=== PATIENT | female | born 1990 | race African-American/Black ===

== ENCOUNTER 2018-06-01 12:24 | Emergency (ER) | payer MEDICAID, OTHER ==
[~2018-06-01] VITALS: Ht 157.5 cm; Wt 78.0 kg
[2018-06-01] MEDS ORDERED: ACETAMINOPHEN 500MG TABLET PO ONE (16:15)
[2018-06-01] MEDS ORDERED: CYCLOBENZAPRINE 10MG TABLET PO ONE (16:15)
[2018-06-01 17:35] LABS: CLARITY URINE CLEAR (CLEAR); COLOR URINE YELLOW (YELLOW); KETONES URINE TRACE (NEGATIVE); LEUKOCYTE ESTERASE URINE 2+ (NEGATIVE); NITRITE URINE NEGATIVE (NEGATIVE); OCCULT BLOOD URINE NEGATIVE (NEGATIVE); PROTEIN URINE NEGATIVE (NEGATIVE); SPECIFIC GRAVITY URINE 1.027 (1.005-1.030)
[2018-06-01 18:05] VITALS: BP 118/49
== END 2018-06-01 18:07 | disposition home or self-care (01) ==
LOC: ER 13:44
DX: G89.29 Other chronic pain (principal); M54.5 Low back pain; R82.71 Bacteriuria
CPT/HCPCS: 72070; 72100; 81025; 99284

== ENCOUNTER 2018-07-27 09:55 | Emergency (ER) | payer MEDICAID ==
[~2018-07-27] VITALS: Ht 152.4 cm; Wt 70.0 kg
[2018-07-27 12:03] VITALS: BP 128/77
== END 2018-07-27 12:05 | disposition home or self-care (01) ==
LOC: ER 09:55
DX: L25.9 Unspecified contact dermatitis, unspecified cause (principal); J06.9 Acute upper respiratory infection, unspecified; F17.200 Nicotine dependence, unspecified, uncomplicated
CPT/HCPCS: 99283

== ENCOUNTER 2018-08-16 09:38 | Emergency (ER) | payer MEDICAID ==
[~2018-08-16] VITALS: Ht 154.9 cm; Wt 73.0 kg
[2018-08-16 11:40] VITALS: BP 128/70
== END 2018-08-16 11:41 | disposition home or self-care (01) ==
LOC: ER 09:38
DX: R05 Cough (principal)
CPT/HCPCS: 71045; 99283

== ENCOUNTER 2019-10-29 16:09 | Emergency (ER) | payer MEDICAID ==
[~2019-10-29] VITALS: Ht 154.9 cm; Wt 73.0 kg
[2019-10-29 17:00] LABS: CLARITY URINE CLOUDY (CLEAR); COLOR URINE YELLOW (YELLOW); KETONES URINE NEGATIVE (NEGATIVE); LEUKOCYTE ESTERASE URINE 1+ (NEGATIVE); NITRITE URINE NEGATIVE (NEGATIVE); OCCULT BLOOD URINE NEGATIVE (NEGATIVE); PH URINE 6.5 (4.5-8.0); PROTEIN URINE NEGATIVE (NEGATIVE); SPECIFIC GRAVITY URINE 1.021 (1.005-1.030)
[2019-10-29] MEDS ORDERED: AZITHROMYCIN 500 MG TABLET PO STA (18:21)
[2019-10-29] MEDS ORDERED: CEFTRIAXONE SODIUM 250 MG/VIAL IM STA (18:21)
[2019-10-29] MEDS ORDERED: ONDANSETRON 4MG ODT PO ONE (18:30)
[2019-10-29] MEDS ORDERED: LIDOCAINE HCL 1% 20ML VIAL (Pyxis) INJ INFIL ONE (18:45)
[2019-10-29 18:48] VITALS: BP 128/69
[2019-11-01 04:08] LABS: NEISSERIA GONORRHOEAE NAA Negative (Negative)
== END 2019-10-29 19:00 | disposition home or self-care (01) ==
LOC: ER 16:09
DX: O23.591 Infection of other part of genital tract in pregnancy, first trimester (principal); O23.41 Unspecified infection of urinary tract in pregnancy, first trimester; B96.89 Other specified bacterial agents as the cause of diseases classified elsewhere; Z3A.00 Weeks of gestation of pregnancy not specified
CPT/HCPCS: 81003; 81025; 87210; 87491; 87591; 96372; 99283; J0696; J3490; Q0162

== ENCOUNTER 2021-01-19 14:28 | Emergency (ER) | payer MEDICAID ==
[~2021-01-19] VITALS: Ht 154.9 cm; Wt 87.0 kg
[2021-01-19] MEDS ORDERED: ONDANSETRON 4MG ODT PO STA (15:37)
[2021-01-19] MEDS ORDERED: IBUPROFEN 600MG TABLET PO STA (15:37)
[2021-01-19 16:39] LABS: CLARITY URINE CLEAR (CLEAR); COLOR URINE YELLOW (YELLOW); KETONES URINE TRACE (NEGATIVE); LEUKOCYTE ESTERASE URINE NEGATIVE (NEGATIVE); NITRITE URINE NEGATIVE (NEGATIVE); OCCULT BLOOD URINE NEGATIVE (NEGATIVE); PH URINE 5.5 (4.5-8.0); PROTEIN URINE NEGATIVE (NEGATIVE); SPECIFIC GRAVITY URINE 1.034 (1.005-1.030); UROBILINOGEN URINE 0.2 E.U./dL (0.2-1.0)
[2021-01-19] MEDS ORDERED: LIDOCAINE HCL 1% 20ML VIAL (Pyxis) INJ INFIL ONE (17:15)
[2021-01-19] MEDS ORDERED: CEFTRIAXONE SODIUM 500 MG/VIAL IM ONE (17:15)
[2021-01-19] MEDS ORDERED: METR500T MT (17:25)
[2021-01-19] MEDS ORDERED: DOXY100T28 MT (17:25)
[2021-01-19] MEDS ORDERED: ONDA4TAB5 PO (17:25)
[2021-01-19] MEDS ORDERED: NAPR-681 PO (17:25)
[2021-01-19 17:43] VITALS: BP 145/81
[2021-01-23 04:06] LABS: NEISSERIA GONORRHOEAE NAA Negative (Negative)
== END 2021-01-19 17:45 | disposition home or self-care (01) ==
LOC: ER 14:28
DX: N72 Inflammatory disease of cervix uteri (principal); N76.0 Acute vaginitis; S61.303A Unspecified open wound of left middle finger with damage to nail, initial encounter; X58.XXXA Exposure to other specified factors, initial encounter; Y93.89 Activity, other specified; Y92.89 Other specified places as the place of occurrence of the external cause
CPT/HCPCS: 81003; 81025; 87210; 87491; 87591; 96372; 99283; J0696; J3490; Q0162

== ENCOUNTER 2022-02-25 05:55 | Emergency (ER) | payer MEDICAID ==
[~2022-02-25] VITALS: Ht 162.6 cm; Wt 84.3 kg
[~2022-02-25 05:55] MED LIST: DOXY100T28 MT; METR500T MT; NAPR-681 PO; ONDA4TAB5 PO
[2022-02-25 06:00] VITALS: BP 117/64
[2022-02-25] MEDS ORDERED: ACETAMINOPHEN 325MG TABLET PO ONE (06:15)
[2022-02-25] MEDS ORDERED: ACET-2708 MT (06:50)
== END 2022-02-25 07:11 | disposition home or self-care (01) ==
LOC: ER 06:04
DX: M25.572 Pain in left ankle and joints of left foot (principal); M79.89 Other specified soft tissue disorders; Z79.899 Other long term (current) drug therapy
CPT/HCPCS: 73610; 81025; 99283

== ENCOUNTER 2022-03-15 11:49 | Emergency (ER) | payer MEDICAID ==
[~2022-03-15] VITALS: Ht 154.9 cm; Wt 80.0 kg
[~2022-03-15 11:49] MED LIST changes: +ACET-2708 MT
[2022-03-15 11:58] VITALS: BP 135/80
[2022-03-15] MEDS ORDERED: ACETAMINOPHEN 325MG TABLET PO PRN (12:30)
[2022-03-15 13:22] LABS: CLARITY URINE CLEAR (CLEAR); COLOR URINE YELLOW (YELLOW); KETONES URINE NEGATIVE (NEGATIVE); LEUKOCYTE ESTERASE URINE NEGATIVE (NEGATIVE); NITRITE URINE NEGATIVE (NEGATIVE); OCCULT BLOOD URINE NEGATIVE (NEGATIVE); PH URINE 6.5 (4.5-8.0); PROTEIN URINE NEGATIVE (NEGATIVE)
[2022-03-15 14:08] LABS: PROTHROMBIN TIME 10.3 sec (9.6-11.0)
[2022-03-15 14:42] LABS: BASOPHILS % 0.7 % (0.0-2.0); EOSINOPHILS % 1.5 % (0.0-5.0); HEMATOCRIT. 40.4 % (36.0-48.0); HEMOGLOBIN. 13.6 g/dL (12.0-16.0); LYMPHOCYTES % 25.2 % (20.0-50.0); MEAN CORPUSCULAR HEMOGLOBIN 30.2 pg (28.0-32.0); MEAN CORPUSCULAR VOLUME 89.8 fL (81.0-99.0); MEAN PLATELET VOLUME 8.3 fl (7.4-10.4); MONOCYTES % 12.9 % (2.0-8.0); NEUTROPHILS % 59.7 % (40.0-76.0); PLATELET 262 x1000/uL (130-400); RED BLOOD CELL COUNT 4.49 mill/uL (4.2-5.4); RED CELL DISTRIBUTION WIDTH 14.1 % (11.6-14.6)
[2022-03-15] MEDS ORDERED: ACET-2708 MT (15:46)
[2022-03-15 15:54] LABS: CHLORIDE 106 mEq/L (98-107)
== END 2022-03-15 16:13 | disposition home or self-care (01) ==
LOC: ER 12:02
DX: R10.31 Right lower quadrant pain (principal)
CPT/HCPCS: 36415; 76830; 76856; 76857; 80053; 81003; 81025; 84702; 85025; 86850; 86900; 99284

== ENCOUNTER 2024-05-10 18:22 | Emergency (ER) | payer MEDICAID ==
[~2024-05-10] VITALS: Ht 154.9 cm; Wt 79.0 kg
[2024-05-10 18:25] VITALS: O2SAT 99
[2024-05-10 18:30] VITALS: BP 145/90; PULSE 84; RESP 18; O2SAT 100
[2024-05-10] MEDS ORDERED: BENZ100C86 MT (19:58)
[2024-05-10] MEDS ORDERED: OSEL30CA MT (19:58)
[2024-05-10 20:05] VITALS: TEMP 98.9
[2024-05-10] MEDS: ACETAMINOPHEN 325MG TABLET PO ONE (20:05)
== END 2024-05-10 21:06 | disposition home or self-care (01) ==
LOC: ER 18:22
DX: B34.9 Viral infection, unspecified (principal); R05.9 Cough, unspecified
CPT/HCPCS: 99283